=== PATIENT | female | born 1965 | race Caucasian/White ===

== ENCOUNTER → 2018-02-28 09:52 | Outpatient (CLI) | payer BC, SELFPAY ==
--- NOTE | 2018-02-28 09:56 | BI_ITS ---
MAMMOGRAPHY - BILATERAL SCREENING REASON FOR EXAM: Female, 52 years old. Routine annual screening examination. PERTINENT HISTORY: Mother with breast cancer. TECHNIQUE: Digital bilateral breast patsy (3D mammographic acquisition) in the CC and MLO projections. 2-D mediolateral oblique (MLO) and craniocaudad (CC) views of both breasts were obtained. CAD: Full Field Digital Mammography with Computer Added Detection was performed. COMPARISON: Comparison is made with prior axial examination dated November 25, 2016. FINDINGS: Breast Composition: The breasts are heterogeneously dense, which may obscure small masses. There are no dominant masses or suspicious calcifications. No other significant abnormalities are identified. There has been no significant change since the prior study. BI/SCREENING MAMM (CAD), BILAT IMPRESSION: Stable bilateral screening mammogram. Yearly follow-up mammogram recommended. (A) ASSESSMENT CATEGORY: BIRADS Category 1: Negative. A letter regarding these results will be sent to the patient by the facility within 30 days. Approximately 10% of breast cancers are not detected by mammography. A normal mammogram should not delay biopsy of a clinically suspicious abnormality. [id number] Electronically Signed: Jose L Castillo MD at 11:28 EST Tel [phone], Service support ,
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
--- OUTSIDE RECORDS SUMMARY | 2018-05-05 02:09 | XMS RPT_ITS | Clinical Summary ---
:1965 Author Organization [facility] Address [address] [place] [address] Phone Care Team Providers Name Role Phone Theresa Ruelas MD Unavailable Conditions or Problems Problem Problem Onset Status Entry Provider Comment Standard Annotate Name Code Date Date Description Screening 177085829 Active Theresa Mar Procedure for HPV (SNOMED CT) / Jessenia carried out MD on subject Screening 268247521 Active Theresa Mar Screening for (SNOMED CT) / Jessenia for cervical MD malignant cancer neoplasm of cervix Business Information Manager annual 23219149 Active Theresa Mar Gynecologic exam (SNOMED CT) / Jessenia examination Medications Medication Instructions Start Stop Generic Name NDC Provider Date Date VICENTE LEAN VICENTE LEAN Theresa E (PROTEIN ANT) 6 (PROTEIN Jessenia CAIN) POTASSIUM 99 MG POTASSIUM [id number] Theresa Mar TABS Fabricio Ruelas MD COPPER COPPER [id number] Threesa Mar GLUCONATE 2 MG 6 GLUCONATE Jessenia LUCAS TABS BIO-V VITAMIN BIO-V VITAMIN Theresa E 6 Jessenia LUCAS BIO-M VITAMIN BIO-M VITAMIN Theresa E WITHOUT IRON 6 WITHOUT IRON Jessenia LUCAS THYROID LIFT THYROID LIFT Theresa Ruelas MD BONE AND JOINT BONE AND Theresa E VITAMIN 6 JOINT VITAMIN Jessenia LUCAS MAGNESIUM 200 MAGNESIUM 84642778173 Theresa E MG TABS Fabricio Ruelas MD TAURINE 500 MG TAURINE 01739648201 Theresa Mar CAPS Fabricio Ruelas MD Medications Administered No information available. Allergies, Adverse Reactions, Alerts Observed no known allergies at Results Date Name Value Unit Range Flag Description Office Visit: est annual MEDS REVIEW Done Documentation of current medications (procedure) MAMMOGRAM Normal Bilateral Breast Mammogram screening PAP SMEAR Normal General categories [Interpretation] of Cervical or vaginal smear or scraping by Cyto stain ORALTOBACUSE Never Tobacco smoking status NHIS SMOK STATUS Current every day smoker Tobacco use [facility] No Fall risk assessment Lab Report: Miscellaneous Lab Procedure [id number] . GE use only - for LinkLogic import when terms are not otherwise specified Plan of Care No information available. Procedures No information available. Vital Signs Date Name Value Unit Description BMI (Body Mass Index) 24.50 kg/m2 Body Mass Index [Ratio] Body Temperature 98.5 [degF] temperature E&M Body Temperature 36.94 Aida temperature in centigrade E&M BP Diastolic 79 mm[Hg] blood pressure, diastolic - 8462-4 BP Systolic 126 mm[Hg] blood pressure, systolic - 8480-6 Heart Rate 79 /min pulse rate E&M - 8867-4 Height 66 [in_us] height E&M - 8302-2 Height 167.64 cm height in centimeters E&M Respiratory Rate 16 /min respiratory rate E&M - 9279-1 Weight Measured 151.8 [lb_av] weight E&M - 3141-9 Weight Measured 68.85 kg weight in kilograms E&M
--- OUTSIDE RECORDS SUMMARY | 2018-05-05 02:09 | XMS RPT_ITS | Clinical Summary ---
:1965 Author Organization [facility] Address [address] [place] [address] Phone Care Team Providers Name Role Phone Theresa Ruelas MD Unavailable Conditions or Problems Problem Problem Onset Status Entry Provider Comment Standard Annotate Name Code Date Date Description Screening 355637017 Active Theresa Mar Procedure for HPV (SNOMED CT) / Jessenia carried out MD on subject Screening 429788238 Active Theresa Mar Screening for (SNOMED CT) / Jessenia for cervical MD malignant cancer neoplasm of cervix Civil Engineer annual 67206417 Active Theresa Mar Gynecologic exam (SNOMED CT) / Jessenia examination Medications Medication Instructions Start Stop Generic Name NDC Provider Date Date VICENTE LEAN VICENTE LEAN Theresa E (PROTEIN ANT) 6 (PROTEIN Jessenia CAIN) POTASSIUM 99 MG POTASSIUM 08314355425 Theresa Mar TABS Fabricio Ruelas MD COPPER COPPER 41248408388 Theresa Mar GLUCONATE 2 MG 6 GLUCONATE Jessenia LUCAS TABS BIO-V VITAMIN BIO-V VITAMIN Theresa E 6 Jessenia LUCAS BIO-M VITAMIN BIO-M VITAMIN Theresa E WITHOUT IRON 6 WITHOUT IRON Jessenia LUCAS THYROID LIFT THYROID LIFT Theresa Ruelas MD BONE AND JOINT BONE AND Theresa E VITAMIN 6 JOINT VITAMIN Jessenia LUCAS MAGNESIUM 200 MAGNESIUM 04761653173 Theresa E MG TABS Fabricio Ruelas MD TAURINE 500 MG TAURINE 90686632689 Theresa Mar CAPS Fabricio Ruelas MD Medications [...] STATUS Current every day smoker Tobacco use [facility] No Fall risk assessment Plan of Care Type Date Detail Appointment 11:00 AM Theresa Ruelas MD, [address] [facility], [address] Floor, [place], [address], Procedures No information available. Vital Signs Date [...]
--- OUTSIDE RECORDS SUMMARY | 2018-05-05 02:09 | XMS RPT_ITS | Clinical Summary ---
:1965 Author Organization [facility] Address [address] [place] [address] Phone Care Team Providers Name Role Phone Theresa Ruelas MD Unavailable Conditions or Problems Problem Problem Onset Status Entry Provider Comment Standard Annotate Name Code Date Date Description Screening 759571787 Active Theresa Mar Procedure for HPV (SNOMED CT) / Jessenia carried out MD on subject Screening 480616683 Active Theresa Mar Screening for (SNOMED CT) / Jessenia for cervical MD malignant cancer neoplasm of cervix Sustainable Systems Analyst annual 53540317 Active Theresa Mar Gynecologic exam (SNOMED CT) / Jessenia examination Medications Medication Instructions Start Stop Generic Name NDC Provider Date Date VICENTE LEAN VICENTE LEAN Theresa E (PROTEIN ANT) 6 (PROTEIN Jessenia CAIN) POTASSIUM 99 MG POTASSIUM 77524949983 Theresa Mar TABS Fabricio Ruelas MD COPPER COPPER 25432369345 Theresa Mar GLUCONATE 2 MG 6 GLUCONATE Jessenia LUCAS TABS BIO-V VITAMIN BIO-V VITAMIN Theresa E 6 Jessenia LUCAS BIO-M VITAMIN BIO-M VITAMIN Theresa E WITHOUT IRON 6 WITHOUT IRON Jessenia LUCAS THYROID LIFT THYROID LIFT Theresa Ruelas MD BONE AND JOINT BONE AND Theresa E VITAMIN 6 JOINT VITAMIN Jessenia LUCAS MAGNESIUM 200 MAGNESIUM 33976419351 Theresa E MG TABS Fabricio Ruelas MD TAURINE 500 MG TAURINE 76820050099 Theresa Mar CAPS Fabricio Ruelas MD Medications [...] STATUS Current every day smoker Tobacco use [facility] No Fall risk assessment Lab Report: [...]
--- OUTSIDE RECORDS SUMMARY | 2018-05-05 02:09 | XMS RPT_ITS | Clinical Summary ---
:1965 Author Organization [facility] Address [address] [place] [address] Phone Care Team Providers Name Role Phone Theresa Ruelas MD Unavailable Conditions or Problems Problem Problem Onset Status Entry Provider Comment Standard Annotate Name Code Date Date Description Screening 652262366 Active Theresa Mar Procedure for HPV (SNOMED CT) / Jessenia carried out MD on subject Screening 068507942 Active Theresa Mar Screening for (SNOMED CT) / Jessenia for cervical MD malignant cancer neoplasm of cervix Manager University annual 33527259 Active Theresa Mar Gynecologic exam (SNOMED CT) / Jessenia examination Medications Medication Instructions Start Stop Generic Name NDC Provider Date Date VICENTE LEAN VICENTE LEAN Theresa E (PROTEIN ANT) 6 (PROTEIN Jessenia CAIN) POTASSIUM 99 MG POTASSIUM [id number] Theresa Mar TABS Fabricio Ruelas MD COPPER COPPER 73262560659 Theresa Mar GLUCONATE 2 MG 6 GLUCONATE Jessenia LUCAS TABS BIO-V VITAMIN BIO-V VITAMIN Theresa E 6 Jessenia LUCAS BIO-M VITAMIN BIO-M VITAMIN Theresa E WITHOUT IRON 6 WITHOUT IRON Jessenia LUCAS THYROID LIFT THYROID LIFT Theresa Ruelas MD BONE AND JOINT BONE AND Theresa E VITAMIN 6 JOINT VITAMIN Jessenia LUCAS MAGNESIUM 200 MAGNESIUM 54558321176 Theresa E MG TABS Fabricio Ruelas MD TAURINE 500 MG TAURINE 32055775848 Theresa Mar CAPS Fabricio Ruelas MD Medications [...] STATUS Current every day smoker Tobacco use [facility] No Fall risk assessment [...]
== END ==
PROVIDERS: Family Provider Family Medicine; PCP Family Medicine; Referring Provider Obstetrics & Gynecology; Visit Provider Obstetrics & Gynecology
DX: Z12.31 Encounter for screening mammogram for malignant neoplasm of breast (principal)
CPT/HCPCS: 77063; 77067

== ENCOUNTER → 2019-03-13 09:58 | Outpatient (CLI) | payer BC, SELFPAY ==
[2018-02-28 10:37] VITALS: BMI 24.5
[2019-02-28 10:18] VITALS: BMI 24.5
--- NOTE | 2019-03-13 10:04 | BI_ITS ---
MAMMOGRAPHY - BILATERAL SCREENING REASON FOR EXAM: Female, 53 years old. Routine annual screening examination. PERTINENT HISTORY: Non-contributory. Remote right excisional breast biopsy. TECHNIQUE: Digital bilateral breast robinson (3D mammographic acquisition) in the CC and MLO projections. 2-D mediolateral oblique (MLO) and craniocaudad (CC) views of both breasts were obtained. CAD: Full Field Digital Mammography with Computer Added Detection was performed. COMPARISON: Comparison is made with prior study dated February 28, 2018. FINDINGS: Breast Composition: The breasts are heterogeneously dense, which may obscure small masses. There are no dominant masses or suspicious calcifications. No other significant abnormalities are identified. There has been no significant change since the prior study. BI/SCREEN MAMM (CAD) W/ROBINSON BILAT IMPRESSION: Stable bilateral screening mammogram. Yearly follow-up mammogram recommended. (A) ASSESSMENT CATEGORY: BIRADS Category 1: Negative. A letter regarding these results will be sent to the patient by the facility within 30 days. Approximately 10% of breast cancers are not detected by mammography. A normal mammogram should not delay biopsy of a clinically suspicious abnormality. [id number] Electronically Signed: Jose L Castillo, at 12:08 EST , Service support ,
== END ==
PROVIDERS: PCP Family Medicine; Referring Provider Obstetrics & Gynecology; Visit Provider Obstetrics & Gynecology
DX: Z12.31 Encounter for screening mammogram for malignant neoplasm of breast (principal)
CPT/HCPCS: 77063; 77067

== ENCOUNTER → 2020-03-16 11:13 | Outpatient (CLI) | payer BC, SELFPAY ==
[2019-03-13 11:19] VITALS: BMI 24.5
[2020-03-16 10:17] VITALS: BMI 22.4
--- NOTE | 2020-03-16 11:16 | BI_ITS ---
MAMMOGRAPHY - BILATERAL SCREENING REASON FOR EXAM: Female, 54 years old. Routine annual screening examination. PERTINENT HISTORY: Mother with breast cancer. Remote right excisional breast biopsy. TECHNIQUE: Digital bilateral breast robinson (3D mammographic acquisition) in the CC and MLO projections. 2-D mediolateral oblique (MLO) and craniocaudad (CC) views of both breasts were obtained. CAD: Full Field Digital Mammography with Computer Added Detection was performed. COMPARISON: Comparison is made with prior study dated 03/13/2019 and 02/28/2018. FINDINGS: Breast Composition: The breasts are heterogeneously dense, which may obscure small masses. There are no dominant masses or suspicious calcifications. Suspect a 6.6 mm x 7 mm nodular density in the inferior central aspect of the left breast at approximately the 6 o''clock position of the breasts. Stable right axillary lymph nodes. No other significant abnormalities are identified. BI/SCRN MAMM (CAD)W/ROBINSON BILAT IMPRESSION: Possible 6.6 mm x 7 mm nodular density in the inferior central aspect of the left breast as described. Correlation with ultrasound is recommended. ASSESSMENT CATEGORY: BIRADS Category 0: Incomplete. Need additional imaging evaluation. A letter regarding these results will be sent to the patient by the facility within 30 days. Approximately 10% of breast cancers are not detected by mammography. A normal mammogram should not delay biopsy of a clinically suspicious abnormality. [id number] Electronically Signed: Jose L Castillo MD at 14:34 EST , Service support ,
== END ==
PROVIDERS: PCP Family Medicine; Referring Provider Obstetrics & Gynecology; Visit Provider Obstetrics & Gynecology
DX: Z12.31 Encounter for screening mammogram for malignant neoplasm of breast (principal); Z80.3 Family history of malignant neoplasm of breast
CPT/HCPCS: 77063; 77067

== ENCOUNTER → 2020-03-19 10:47 | Outpatient (CLI) | payer BC, SELFPAY ==
[2020-03-16 10:17] VITALS: BMI 22.4
--- NOTE | 2020-03-19 10:50 | US_ITS ---
STUDY: ULTRASOUND BREAST - LEFT REASON FOR EXAM: Female, 54 years old. Abnormal screening mammogram. TECHNIQUE: Axial and longitudinal images of the LEFT breast were performed with a high resolution ultrasound transducer. # OF IMAGES: 43 COMPARISON: Comparison is made with prior study dated 03/16/2020. FINDINGS: LEFT Breast: There is a 3 mm x 4 mm x 2 mm hypoechoic nodule at the 6 o''clock position of the breast at 2 cm from the nipple. This is not a typical cyst. Biopsy is recommended. US/Breast Limited Unilateral IMPRESSION: 3 mm x 4 mm x 2 mm hypoechoic nodule at the 6 o''clock position of the breast at 2 cm from nipple. A biopsy is recommended. ASSESSMENT CATEGORY: BIRADS Category 4: Suspicious - Biopsy Should Be Considered. A letter regarding these results will be sent to the patient by the facility within 30 days. Electronically Signed: Jose L Castillo MD at 13:07 EST , Service support ,
== END ==
PROVIDERS: PCP Family Medicine; Referring Provider Nurse Practitioner Women's Health; Visit Provider Nurse Practitioner Women's Health
DX: R92.8 Other abnormal and inconclusive findings on diagnostic imaging of breast (principal)
CPT/HCPCS: 76642

== ENCOUNTER → 2020-04-02 12:27 | Outpatient (CLI) | payer BC, SELFPAY ==
[2020-03-25 12:39] VITALS: BMI 21.5
--- NOTE | 2020-04-02 | BRBX_PTH ---
PATIENT: ISABEL GUZMAN LOC: [facility] U#:[id number] AGE/SX: 59/F ROOM: RE04/02/[address]: Dr. Tariq Millan MD : 1965 BED: DIS: SPEC #: [id number] RECD: 04/02/20 13:57 STATUS: LEX REArsalan #: [id number] DUYEN: 04/02/20 00:[address]: Tariq Millan DEPT: SURGICAL PATHOLOGY RECD BY: Dino Rajan ENTERED: 04/03/20 07:26 SP TYPE: BREAST BX OTHR DR: Dr. Surjit Millan III, MD Tissues: Left breast, NOS Procedures: Surgery Specimen Level IV HEADER OPERATION: Left stereotactic breast biopsy PRE-OP DIAGNOSIS: 6 o'clock left breast density TISSUE SUBMITTED: 6 o'clock left breast density ISCHEMIC TIME: 1 minute FIXATION TIME: 78.5 hours MICROSCOPIC DIAGNOSIS Left breast density, 6 o'clock, stereotactic core biopsy: Fragments of benign breast tissue with focal fibrocystic changes and minimal intraductal hyperplasia without atypia. Negative for malignancy. See comment. ABRIL:josue 04/06/2020 COMMENT Correlation with clinical, radiologic findings and appropriate follow up are necessary. MICROSCOPIC DESCRIPTION Slides are reviewed. GROSS DESCRIPTION Received is one container labeled with the patient's name and not further designated. The specimen consists of multiple irregular fragments of yellow-guadalupe soft tissue that in aggregate measure 4.5 x 3 x 0.2 cm. The specimen is totally submitted in two cassettes. / AM:josue 04/03/20 TC:5 CPT: 28717
--- NOTE | 2020-04-02 12:40 | HP.PCM_ITS ---
Problem List (1) Abnormal mammogram of left breast Status: Acute History and Physical Date of Admission: 04/02/20 Intake Visit Reasons: BIRADS 4 LEFT BREAST Chief Complaint: BIRADS 4 Left Breast Monitor Car Operator Required: No Accompanied by: Is patient in pain?: No Allergies No Known Allergies Allergy (Verified 03/25/20 12:40) Medications multivitamin,fk-[id number]-arcxplkk 1 tab PO DAILY 02/28/18 [History Confirmed 03/25/20] antiarthritic combination no.2 900 mg tablet mg PO 03/16/20 [History Confirmed 03/25/20] losartan 50 mg tablet 50 mg PO DAILY 03/16/20 [History Confirmed 03/25/20] potassium gluconate 595 mg (99 mg) tablet 595 mg PO DAILY 03/16/20 [History Confirmed 03/25/20] meloxicam 15 mg tablet 15 mg PO DAILY 03/25/20 [History Confirmed 03/25/20] PFSH Medical History Abnormal mammogram of left breast (Acute) Back problem (Acute) History of abnormal cervical Pap smear (Acute) Hypertension (Chronic) Surgical History History of lumpectomy of right breast (Acute) Family History (Updated 03/25/20 @ 12:39 by Karoline Mistry) Grandmother Cancer hodgkins lymphoma Sister Cancer lung, brain Father Diabetes Mother Cancer Lymphoma with mets Social History (Updated 03/25/20 @ 13:[address] Tariq Millan MD) Smoking Status: Current every day smoker alcohol intake: current details: occasionally substance use type: does not use caffeine: Yes what type of physical activity do you participate in: none seatbelt use: never do you feel safe at home: Yes additional social history: - Yan HPI HPI HPI: ISABEL GUZMAN, is a 54 F who presents to the office today for surgical consultation regarding an abnormal mammogram. Patient is referred by Dr. Surjit Millan III and Madelyn Rolle. A written copy my surgical consult recommendations will return to them. 54-year-old female. A0. Menarche at age 14. First child was born when she was 23. She did breast-feed. Not been on any estrogen replacement. Family history is negative for breast cancer. No nipple discharge or bleeding. She has had a remote right breast biopsy per myself including excisional biopsy which was benign. On March 16, 2020 at the [facility] she had screening mammography. This suggested a possible 6.6 x 7 mm nodular density in the inferior central aspect of the left breast. Actually on my review in the assisted review from my my hazardous waste material technician there may be 2 similar looking items in the same inferior portion. These do not seem to show on CC view. The patient then had a breast ultrasound on March 19, 2020. A 3 x 4 x 2 mm hypoechoic nodule 6 o'clock position +2 cm was identified. It was felt to be BI-RADS Category 4 suspicious. On my personal review of the ultrasound this item is extremely vague and appears to be even more vague upon rotation of the probe. It does not make immediate correlate of sense to me that this 3 x 4 mm area correlates with the mammographic 6.6 to 7 mm area. HPI HPI HPI: ISABEL GUZMAN, is a 54 F who presents to the office today for ROS General General: Yes weight change; no appetite, fatigue, colon cancer, breast cancer or weakness HEENT HEENT: No difficulty swallowing, eye injury, eye surgery, swollen glands or hoarseness Endo Endocrine: No thyroid disease, diabetes mellitus, thyroid cancer, Hair loss, heat intolerance or cold intolerance Skin Skin: No rash or changing moles Breast Breast: Yes abnormal mammogram; no left breast lump, right breast lump, nipple discharge, breast pain, abnormal US or breast enlargement Musc Musculoskeletal: No back problems, arthritis, rheumatoid arthritis, gout or joint pain Cardio Cardiovascular: Yes high blood pressure; no murmur, pacemaker, heart disease, atrial fibrillation, heart attack, heart stent, palpitations, shortness of breat with exertion or chest pain Psych Psychiatric: No depression, anxiety or hearing voices Resp Respiratory: No shortness of breath, No sleep apnea, No cough, No COPD, No asthma, No emphysema, No wheezing Gastro Gastrointestinal: No abdominal pain, No nausea or vomiting, No diarrhea, No constipation, No blood in stool, No acid reflux, No hemorrhoids, No ulcers, No gallbladder problem, No black,tarry stools Calderon Hematologic: No blood thinners, No blood disorders, No bleeding, No anemia, No blood clots Neuro Neurologic: No system reviewed and no additional complaints, except as docu, No as per HPI, No abnormal walking, No abnormal hearing, No abnormal movements, No abnormal speech, No behavioral changes, No burning sensations, No confusion, No seizure-like activity, No unsteadiness, No dizziness, No localized weakness, No frequent falls, No headache(s), No lack of coordination, No loss of vision, No memory loss, No numbness, No other visual disturbances, No radiating pain, No restless legs, No sensory deficit, No fainting, No tingling, No tremor(s), No weakness, No other Exam Const General: cooperative, healthy appearing, comfortable, no acute distress Nutritional Appearance: average body habitus Orientation: alert, awake Chest Breast Palpation: No nipple discharge Other: Right breast: No focal mass. No nipple discharge. No axillary or clavicular adenopathy Left breast: No focal mass. No nipple discharge. No axillary or clavicular adenopathy Cardio Heart Sounds: no murmurs Assessment & Plan Problems 1. Abnormal mammogram of left breast R92.8 2. Abnormal ultrasound of breast R92.8 Plan I have personally reviewed the patient's mammogram and ultrasound. On mammogram the area of concern on MLO is vague and there appears to be actually 2 similar items and rather close proximity to each other. On reviewing the patient's ultrasound the item found appears to be much smaller and even more vague. I believe that this item seen on ultrasound would be very difficult to identify for sampling. With that in mind I have offered the patient attempted a stereotactic needle core left breast biopsy of 1 possibly 2 lesions depending upon what might be identified. I have discussed the technique, benefit, risk and alternatives. If a definitive item cannot be identified then a secondary option would be to schedule for an attempt at an ultrasound-guided needle core biopsy of the left breast 6 o'clock position +2 cm lesion. We would need to attempt that in the ultrasound suite. Pending progress with 1 or both of these procedures the patient could potentially benefit from a breast MRI. The patient and her have had an opportunity to ask and have questions answered. We will schedule procedure at her discretion. Unfortunately I am anticipating that this area of mammographic and or ultrasound concern may not represent the identical lesion and likely will be difficult to image. Copy: BRIAN TiwariC and Dr. Surjit Millan, III Tariq Millan M.D., F.A.C.S. Coding Level of Care Code 88535 Diagnoses Abnormal mammogram of left breast R92.8 Abnormal ultrasound of breast R92.8 I have re-examined the patient. There are no clinical changes since date of exam. Procedure Criteria Procedure Type: Elective COVID Risk Discussion: The surgeon/proceduralist and patient have discussed in detail the risk of exposure to and/or potential harm posed by the COVID-19 virus with having a surgery/procedure at this time versus the risk of delaying the surgery/procedure. It is not possible to know either the risk of delaying the surgery or procedure or chance of getting an infection with perfect accuracy, but a joint decision was made between the patient and the surgeon/proceduralist to proceed at this time with the scheduled surgery/procedure as indicated on the consent form.
--- NOTE | 2020-04-02 13:32 | PCM.OPRPT ---
Problem List (1) Abnormal mammogram of left breast Status: Acute Report of Operation Date of Procedure: 04/02/20 Pre-Operative Diagnosis: Mammographic density lower mid left breast Post-Operative Diagnosis: Same Surgery/Procedure Performed:: Stereotactic needle core biopsy lower mid left breast Description of Surgical Findings:: Timeout and informed consent was obtained. 54-year-old female was taken to the stereotactic unit) on the table. The left breast was placed in medial lateral view. The vague density in question was felt to been identified. Stereotactic images were obtained. Digital information was obtained on a single target site. The breast was prepped with Betadine. 1% lidocaine was used as a local anesthetic. A total of 10 cc was used. A small stab incision was created. A 10-gauge resolved needle was advanced to prefire depth. Prefire films were obtained suggesting that the lesion seems to have resolved. The device was fired. 6 cores were obtained. A marking clip was left at the 12 o'clock position. On fast view demonstrated seemingly resolution of the previous density with marking clip in the area of the lesion. She was released from the device. Pressure was held for hemostasis. Steri-Strip Telfa OpSite dressing applied. The specimens had been immediately transferred to formalin. She was given activity wound care instructions. She will be notified of pathology results as they become available. Drains none. Specimens needle cores x6 in 1 container. Blood loss minimal. Tariq Millan M.D., F.A.C.S. Type of Anesthesia:: Local
== END ==
PROVIDERS: PCP Family Medicine; Referring Provider Surgery; Visit Provider Surgery
DX: R92.8 Other abnormal and inconclusive findings on diagnostic imaging of breast (principal); I10 Essential (primary) hypertension; F17.200 Nicotine dependence, unspecified, uncomplicated; Z79.1 Long term (current) use of non-steroidal anti-inflammatories (NSAID); N62 Hypertrophy of breast
CPT/HCPCS: 19081; 88305; J7050; A4648

== ENCOUNTER → 2020-10-21 13:42 | Outpatient (CLI) | payer BC, SELFPAY ==
[2020-03-25 12:39] VITALS: BMI 21.5
--- NOTE | 2020-10-21 13:44 | BI_ITS ---
MAMMOGRAPHY - UNILATERAL DIAGNOSTIC: LEFT BREAST REASON FOR EXAM: Female, 55 years old. Follow-up for left stereotactic breast biopsy. PERTINENT HISTORY: Mother with breast cancer. TECHNIQUE: Digital unilateral breast patsy (3D mammographic acquisition) in the CC and MLO projections. 2-D mediolateral oblique (MLO) and craniocaudad (CC) views of both breasts were obtained. CAD: Full Field Digital Mammography with Computer Added Detection was performed. COMPARISON: Comparison is made with prior study of 03/16/2020. FINDINGS: Breast Composition: The breasts are heterogeneously dense, which may obscure small masses. Status post biopsy of a nodular density in the inferior medial aspect of the left breast. A tissue clip marker is seen within it. No other significant abnormalities are identified. BI/DIAG MAMM W/CAD, UNILAT IMPRESSION: Stable unilateral diagnostic mammogram. One year follow-up mammogram recommended. (A) ASSESSMENT CATEGORY: BIRADS Category 2: Benign. A letter regarding these results will be sent to the patient by the facility within 30 days. Approximately 10% of breast cancers are not detected by mammography. A normal mammogram should not delay biopsy of a clinically suspicious abnormality. Electronically Signed: Jose L Castillo MD at 15:05 EDT , Service support ,
== END ==
PROVIDERS: PCP Family Medicine; Referring Provider Surgery; Visit Provider Surgery
DX: R92.8 Other abnormal and inconclusive findings on diagnostic imaging of breast (principal); Z98.890 Other specified postprocedural states
CPT/HCPCS: 77061; 77065; G0279

== ENCOUNTER 2021-04-01 08:56 | Outpatient (CLI) | payer BC, SELFPAY ==
[2021-04-08 08:52] LABS: HPV APTIMA, High Risk Negative (Negative)
== END 2021-04-01 23:59 | disposition home or self-care (01) ==
LOC: LABSPEC 04-02 08:57
PROVIDERS: PCP Internal Medicine; Visit Provider Obstetrics & Gynecology
DX: Z12.4 Encounter for screening for malignant neoplasm of cervix (principal)
CPT/HCPCS: 87624; 88175; G0145

== ENCOUNTER 2021-05-13 15:43 | Outpatient (CLI) | payer BC, SELFPAY ==
[2021-05-13 16:38] LABS: Absolute Lymphocyte Count 2.35 X10^3/uL (0.83-4.51); Absolute Neutrophil Count 4.6 X10^3/uL (2.0-7.7); Basophil# 0.07 X10^3/uL; Basophil% 0.9 % (0-1); Eosinophil# 0.19 X10^3/uL; Eosinophils% 2.4 % (0-5); Hematocrit 41.5 % (37-47); Hemoglobin 13.7 g/dL (12.0-15.0); Lymphocyte # 2.35 X10^3/ul (0.83-4.51); Lymphocyte % 29.4 % (19-41); Mean Platelet Vol. 9.7 fl (6.2-12.0); Monocyte# 0.73 X10^3/uL; Monocyte% 9.1 % (0-10); NRBC Flagged by Analyzer 0 % (0-5); Neutrophil # 4.62 X10^3/uL (2.7-7.7); Neutrophil % 57.9 % (47-70); Platelet Count 347 K/mm3 (150-450); RBC Distribution Width CV 12.3 % (11.6-14.6); RBC Distribution Width SD 44.4 fl (35.1-43.9); Red Blood Count 4.28 M/mm3 (4.2-5.4)
[2021-05-13 16:56] LABS: Vitamin D,25 Hydroxy 32.1 ng/mL
[2021-05-13 17:02] LABS: Hemoglobin A1c 5.2 % (3.8-5.6)
[2021-05-13 17:29] LABS: AST(SGOT) 23 U/L (15-37); Alanine Aminotransfer ALT/SGPT 37 U/L (13-56); Albumin, Serum 3.9 g/dL (3.2-5.0); Alkaline Phosphatase 83 U/L (45-117); Anion Gap 1 (5-15); BUN 22 mg/dL (7-18); BUN/Creat Ratio 37.7 RATIO (10-20); Calcium,Total 9.2 mg/dL (8.5-10.1); Chloride 105 mmol/L (98-107); Cholesterol 214 mg/dL (200); Creatinine, Serum 0.58 mg/dL (0.55-1.02); EST Glomerular Filtration Rate 113 mL/min (>60); Est Glom Filt Rate - Afr Amer 137 mL/min (>60); Ferritin 184 ng/mL (8-252); Free T3 2.7 pg/mL (2.18-3.98); Globulin 4.1 g/dL (2.2-4.2); Glucose 80 mg/dL (74-106); High Density Lipoprotein 54 mg/dL; Iron 106 ug/dL (50-170); Iron Binding Capacity,Total 252 ug/dL (250-450); PERCENT IRON SATURATION 42.1 % (15.0-55.0); Potassium 4.5 mmol/L (3.5-5.1); Sodium Level 137 mmol/L (136-145); T4 Free Direct 0.95 ng/dL (0.76-1.46); Thyroid Stim Hormone (TSH) 0.87 uIU/mL (0.358-3.74); Triglycerides 242 mg/dL; Very Low Density Lipoprotein 48 mg/dL (5-40)
== END 2021-05-13 23:59 | disposition home or self-care (01) ==
LOC: BIMLAB 15:44
PROVIDERS: PCP Internal Medicine; Referring Provider Internal Medicine; Visit Provider Internal Medicine
DX: I10 Essential (primary) hypertension (principal); R79.0 Abnormal level of blood mineral
CPT/HCPCS: 36415; 80053; 80061; 82306; 82728; 83036; 83540; 83550; 83735; 84439; 84443; 84481; 85025

== ENCOUNTER → 2021-11-08 | Outpatient (CLI) | payer BC, SELFPAY ==
--- NOTE | 2021-11-08 14:05 | BI_ITS ---
MAMMOGRAPHY - BILATERAL SCREENING REASON FOR EXAM: Female, 56 years old. Routine annual screening examination. PERTINENT HISTORY: Mother with breast cancer. Prior right excisional breast biopsy. TECHNIQUE: Digital bilateral breast robinson (3D mammographic acquisition) in the CC and MLO projections. 2-D mediolateral oblique (MLO) and craniocaudad (CC) views of both breasts were obtained. CAD: Full Field Digital Mammography with Computer Added Detection was performed. COMPARISON: Comparison is made with prior study dated 03/16/2020 and 10/21/2020. FINDINGS: Breast Composition: The breasts are heterogeneously dense, which may obscure small masses. There are no dominant masses or suspicious calcifications. A tissue clip marker is seen in the deep inferior medial aspect of the left breast. The previously seen nodular density has almost completely resolved. No other significant abnormalities are identified. BI/SCRN MAMM (CAD)W/ROBINSON BILAT IMPRESSION: Stable bilateral screening mammogram. Yearly follow-up mammogram recommended. (A) ASSESSMENT CATEGORY: BIRADS Category 2: Benign. A letter regarding these results will be sent to the patient by the facility within 30 days. Approximately 10% of breast cancers are not detected by mammography. A normal mammogram should not delay biopsy of a clinically suspicious abnormality. [id number] Electronically Signed: Jose L Castillo MD at 14:47 EDT ,
== END | disposition home or self-care (01) ==
LOC: OPBI 14:04
PROVIDERS: PCP Internal Medicine; Visit Provider Surgery
DX: Z12.31 Encounter for screening mammogram for malignant neoplasm of breast (principal); Z80.3 Family history of malignant neoplasm of breast
CPT/HCPCS: 77063; 77067

== ENCOUNTER → 2022-06-20 | Outpatient (CLI) | payer BC, SELFPAY ==
[2022-06-20 12:05] LABS: Absolute Lymphocyte Count 2.17 X10^3/uL (0.83-4.51); Basophil# 0.08 X10^3/uL; Basophil% 0.7 % (0-1); Eosinophil# 0.07 X10^3/uL; Eosinophils% 0.6 % (0-5); Hematocrit 43.4 % (37-47); Hemoglobin 14.3 g/dL (12.0-15.0); Lymphocyte # 2.17 X10^3/ul (0.83-4.51); Mean Corp Hgb Conc 32.9 g/dL (32-36); Mean Corpuscular Hgb 32.4 pg (27.0-32.0); Mean Corpuscular Volume 98.2 fL (81-99); Mean Platelet Vol. 9.8 fl (6.2-12.0); Monocyte# 1.07 X10^3/uL; Monocyte% 9.4 % (0-10); NRBC Flagged by Analyzer 0 % (0-5); Neutrophil # 7.98 X10^3/uL (2.7-7.7); Neutrophil % 69.9 % (47-70); Platelet Count 359 K/mm3 (150-450); RBC Distribution Width CV 12.4 % (11.6-14.6); Red Blood Count 4.42 M/mm3 (4.2-5.4); White Blood Count 11.4 K/mm3 (4.4-11.0)
[2022-06-20 12:48] LABS: ALB/GLOB Ratio 0.9 RATIO (0.9-2.4); AST(SGOT) 22 U/L (15-37); Alanine Aminotransfer ALT/SGPT 31 U/L (13-56); Albumin, Serum 3.8 g/dL (3.2-5.0); Alkaline Phosphatase 84 U/L (45-117); Anion Gap 6 (5-15); BUN 19 mg/dL (7-18); BUN/Creat Ratio 35.8 RATIO (10-20); Calcium,Total 9.6 mg/dL (8.5-10.1); Chloride 105 mmol/L (98-107); Cholesterol 221 mg/dL (200); Creatinine, Serum 0.53 mg/dL (0.55-1.02); EST Glomerular Filtration Rate 125 mL/min (>60); Est Glom Filt Rate - Afr Amer 152 mL/min (>60); Ferritin 204 ng/mL (8-252); Globulin 4.4 g/dL (2.2-4.2); Glucose 95 mg/dL (74-106); High Density Lipoprotein 65 mg/dL; Iron 114 ug/dL (50-170); Iron Binding Capacity,Total 247 ug/dL (250-450); PERCENT IRON SATURATION 46.2 % (15.0-55.0); Potassium 4.1 mmol/L (3.5-5.1); Protein, Total 8.2 g/dL (6.4-8.2); Sodium Level 138 mmol/L (136-145); T4 Free Direct 1.15 ng/dL (0.76-1.46); Thyroid Stim Hormone (TSH) 0.91 uIU/mL (0.358-3.74); Triglycerides 157 mg/dL; Very Low Density Lipoprotein 31 mg/dL (5-40)
[2022-06-21 12:09] LABS: CCP IgG Antibodies > 250 units (0-19)
[2022-06-21 13:08] LABS: ANTINUCLEAR ANTIBODIES DIRECT Negative (Negative)
== END | disposition home or self-care (01) ==
LOC: LAB 11:41
PROVIDERS: PCP Internal Medicine; Referring Provider Internal Medicine; Visit Provider Internal Medicine
DX: Z00.00 Encounter for general adult medical examination without abnormal findings (principal); M19.90 Unspecified osteoarthritis, unspecified site; M65.9 Synovitis and tenosynovitis, unspecified; R79.0 Abnormal level of blood mineral; I10 Essential (primary) hypertension; Z13.220 Encounter for screening for lipoid disorders; E55.9 Vitamin D deficiency, unspecified
CPT/HCPCS: 36415; 80053; 80061; 82306; 82728; 83540; 83550; 84439; 84443; 84481; 85025; 86038; 86200; 86225; 86235; 86431

== ENCOUNTER → 2022-09-06 | Outpatient (CLI) | payer BC, SELFPAY | END | disposition home or self-care (01) | LOC: LABSPEC 09:02 | PROVIDERS: PCP Internal Medicine; Referring Provider Internal Medicine; Visit Provider Internal Medicine | DX: K58.0 Irritable bowel syndrome with diarrhea (principal) | CPT/HCPCS: 87493; 87506 ==

== ENCOUNTER → 2022-11-10 | Outpatient (CLI) | payer BC, SELFPAY ==
--- NOTE | 2022-11-10 10:12 | BI_ITS ---
MAMMOGRAPHY - BILATERAL SCREENING REASON FOR EXAM: Female, 57 years old. Routine annual screening examination. PERTINENT HISTORY: Mother with breast cancer. Prior right excisional breast biopsy and left stereotactic breast biopsy. TECHNIQUE: Digital bilateral breast robinson (3D mammographic acquisition) in the CC and MLO projections. 2-D mediolateral oblique (MLO) and craniocaudad (CC) views of both breasts were obtained. CAD: Full Field Digital Mammography with Computer Added Detection was performed. COMPARISON: Comparison is made with prior study November 08, 2021 and October 21, 2020. FINDINGS: Breast Composition: The breasts are heterogeneously dense, which may obscure small masses. There are no dominant masses or suspicious calcifications. A tissue clip marker is once again seen in the deep inferior medial aspect of the left breast. The patient is status post lumpectomy in the upper outer quadrant of the right breast. Postoperative scarring is seen. No other significant abnormalities are identified. There has been no significant change since the prior study. BI/SCRN MAMM (CAD)W/ROBINSON BILAT IMPRESSION: Stable bilateral screening mammogram. Yearly follow-up mammogram recommended. (A) ASSESSMENT CATEGORY: BIRADS Category 2: Benign. A letter regarding these results will be sent to the patient by the facility within 30 days. Approximately 10% of breast cancers are not detected by mammography. A normal mammogram should not delay biopsy of a clinically suspicious abnormality. [id number] Electronically Signed: Jose L Castillo MD at 11:06 EDT ,
== END | disposition home or self-care (01) ==
LOC: OPBI 10:10
PROVIDERS: PCP Internal Medicine; Referring Provider Obstetrics & Gynecology; Visit Provider Obstetrics & Gynecology
DX: Z12.31 Encounter for screening mammogram for malignant neoplasm of breast (principal); Z80.3 Family history of malignant neoplasm of breast
CPT/HCPCS: 77063; 77067

== ENCOUNTER 2023-01-27 06:50 | Day surgery (SDC) | payer BC, SELFPAY ==
[2023-01-27] VITALS (8 sets, daily range): BP systolic 78–140; BP diastolic 33–76; PULSE 60–96; RESP 16–18; TEMP 36.2–36.5; O2SAT 94–100; BMI 19.2
[2023-01-27] MEDS: Lactated Ringers 1,000 ML 15 ML IV (07:08)
--- NOTE | 2023-01-27 07:08 | HP.PCM_ITS ---
History and Physical Date of Admission: 01/27/23 isit Reasons: Change in bowel habits on-going x2 months Chief Complaint: Change in bowels habits diarrhea x 2 months Allergies No Known Allergies Allergy (Verified 11/18/22 14:30) Medications multivitamin,[id number]-[id number] (Complete Multivitamin tablet) 1 tab PO DAILY 02/28/18 [History Confirmed 11/18/22] antiarthritic combination no.2 900 mg tablet (glucosamine-chondroitin) mg PO 03/16/20 [History Confirmed 11/18/22] potassium gluconate 595 mg (99 mg) tablet 595 mg PO DAILY 03/16/20 [History Confirmed 11/18/22] physio flex max PO 11/05/20 [History Confirmed 11/18/22] protein supplement ea PO 11/05/20 [History Confirmed 11/18/22] sebacic copper PO 11/05/20 [History Confirmed 11/18/22] taurnine PO 11/05/20 [History Confirmed 11/18/22] thyrolift PO 11/05/20 [History Confirmed 11/18/22] latanoprost 0.005 % eye drops 1 drp ophthalmic (eye) QPM 12/10/21 [History Confirmed 11/18/22] losartan 50 mg tablet 50 mg PO DAILY #90 tabs 06/13/22 [Rx Confirmed 11/18/22] meloxicam 15 mg tablet 15 mg PO DAILY #90 tabs 06/13/22 [Rx Confirmed 11/18/22] bio b PO 1XD 06/20/22 [History Confirmed 11/18/22] polyethylene glycol 3350 17 gram/dose oral powder (Miralax) 4 g PO DAILY 11/18/22 [History Confirmed 11/18/22] [facility] Medical History Abnormal mammogram of left breast Abnormal mammogram of left breast Abnormal ultrasound of breast Back problem History of abnormal cervical Pap smear Hypertension Surgical History History of lumpectomy of right breast Family History Grandmother Cancer hodgkins lymphomaSister Cancer lung, brainFather DiabetesMother Cancer Lymphoma with metsOther Arthritis CVA (cerebral vascular accident) Social History Smoking Status: Current every day smoker alcohol intake: current details: occasionally substance use type: marijuana caffeine: Yes what type of physical activity do you participate in: none seatbelt use: never do you feel safe at home: Yes additional social history: - Yan HPI HPI HPI: 57-year-old female referred by Dr. Nuris Teixeira for surgical consultation regarding change of bowel habits and a written copy of my surgical consult recommendations will return to him. Patient is complaining about a significant mount of diarrhea watery nonbloody stools. This has been a several month onset. There is a history of a remote colonoscopy 10 years ago which was unremarkable. I have a copy of the report dated November 04, 2016 of a colonoscopy done by Dr. Cheng Pantoja. That required 100 mcg of fentanyl and 6 mg of Versed and 50 mg of diphenhydramine. Diverticulosis was noted no other acute findings. C. difficile was recently negative. Course of ciprofloxacin made him change. Dietary exclusion of lactose may no change. There is rheumatoid factor remain The patient states now for 3 months she has had looser diarrheal stools. Mostly in the morning when she wakes up. She has not noticed any black stools or blood in her stools. No fever no pain. The problems are not resolving however. She has had a 6 to 7 pound weight loss. Her appetite is diminished. She has no family history of inflammatory bowel disease or colon cancer. She does have a sister who a lifelong had problems with constipation. ROS General General: Yes weight change; No weakness HEENT HEENT: No difficulty swallowing, eye injury, eye surgery, swollen glands or hoarseness Endo Endocrine: No thyroid disease, diabetes mellitus, thyroid cancer, Hair loss, heat intolerance or cold intolerance Skin Skin: No rash or changing moles Breast Breast: No left breast lump, right breast lump, nipple discharge, breast pain, abnormal mammogram, abnormal US or breast enlargement Musc Musculoskeletal: No back problems, arthritis, rheumatoid arthritis, gout or joint pain Cardio Cardiovascular: No murmur, pacemaker, heart disease, atrial fibrillation, high blood pressure, heart attack, heart stent, palpitations, shortness of breat with exertion or chest pain Psych Psychiatric: No depression, anxiety or hearing voices Resp Respiratory: No shortness of breath, No sleep apnea, No cough, No COPD, No asthma, No emphysema and No wheezing Gastro Gastrointestinal: Yes diarrhea Calderon Hematologic: No blood thinners, No blood disorders, No bleeding, No anemia and No blood clots Neuro Neurologic: No system reviewed and no additional complaints, except as documented, No as per HPI, No abnormal gait, No abnormal hearing, No abnormal movements, No abnormal speech, No behavioral changes, No burning sensations, No confusion, No convulsions, No disequilibrium, No dizziness, No localized weakness, No frequent falls, No headache(s), No lack of coordination, No loss of vision, No memory loss, No numbness, No other visual disturbances, No radicular pain, No restless legs, No sensory deficit, No syncope, No tingling, No tremor(s), No weakness and No other Exam Const General: cooperative, comfortable, no acute distress and well developed Nutritional Appearance: average body habitus Orientation: alert, awake and oriented x3 HENMT Head: normal to inspection Eyes General: appearance normal, both eyes and all related structures Neck Neck: normal visual inspection Resp Effort & Inspection: normal respiratory effort Auscultation: clear to auscultation bilaterally Cardio Rate: regular rate Rhythm: regular rhythm GI Inspection: normal to inspection Palpation: soft and no hepatosplenomegaly Musc Cervical Spine: normal cervical lordosis Skin General: no rashes or lesions noted Neuro General: patient alert, patient awake and patient oriented x3 Extrem General: no calf tenderness Psych Appearance: grossly normal Assessment and Plan Assessment and Plan (1) Diarrhea: Status: Acute Qualifiers: Diarrhea type: unspecified type Qualified Code(s): R19.7 - Diarrhea, unspecified Plan: 57-year-old female now with intractable diarrhea of undetermined etiology. I propose for her colonoscopy with possible biopsy or polypectomy as indicated. I will try to do my best to get into the terminal ileum and if random biopsies are appropriate we will pursue that. She has had an opportunity to ask and have questions answered. Anticipate performing this with monitored anesthesia care. She has had an opportunity to ask and have questions answered. We will schedule procedure at her discretion. I appreciate the opportunity of assisting with her surgical care. Copy: Dr. Nuris Millan M.D., F.A.C.S. I have examined the patient and the H&P has been reviewed. There are no clinical changes since date of exam. Tariq Millan M.D., F.A.C.S.
--- NOTE | 2023-01-27 07:08 | DCINST_ITS ---
Discharge Instructions Follow Up Care Test Results: Test results from this visit will be discussed in further detail at your follow- up appointment, if applicable. Discharge Plan Admission Attending Provider: Tariq Millan Primary Care Provider: Nuris Teixeira Discharge Orders/Prescriptions Prescriptions: No Action Complete Multivitamin tablet 1 tab PO DAILY potassium gluconate 595 mg (99 mg) tablet 595 mg PO DAILY glucosamine-chondroitin 900 mg tablet 900 mg PO DAILY protein supplement Granules 1 ea PO DAILY physio flex max 1 tab PO DAILY thyrolift 1 tab PO DAILY sebacic copper 1 tab PO DAILY taurnine 1 tab PO DAILY latanoprost 0.005 % drops 1 drp ophthalmic (eye) QPM bio b 1 tab PO 1XD peg 3350-electrolytes 236-22.74-6.74 -5.86 gram recon soln 4,000 ml PO ONCE Qty: 4000 0RF Rx Instructions: until fecal effluent is clear; do not exceed a total volume of 4000 mL Probiotic 10 billion cell capsule 100 mmu cells PO DAILY magnesium malate, chelate 125 mg magnesium capsule 125 mg PO DAILY losartan 50 mg tablet 50 mg PO DAILY Qty: 90 3RF meloxicam 15 mg tablet 15 mg PO DAILY Qty: 90 1RF Referrals / Follow Up: Nuris Teixeira MD [Primary Care Provider] - Disposition Disposition (needs filled in before D/C Order can be placed): Home, Self Care
--- NOTE | 2023-01-27 08:00 | COLBX_PTH ---
PATIENT: ISABEL GUZMAN LOC: EN U#:[id number] AGE/SX: 57/F ROOM: RE01/27/[address]: Dr. Tariq Millan MD : 1965 BED: DIS: 01/27/2023 SPEC #: [id number] RECD: 01/27/23 11:07 STATUS: LEX MICHELEArsalan #: [id number] DUYEN: 01/27/23 08:[address]: Tariq Millan DEPT: SURGICAL PATHOLOGY RECD BY: Renuka Ndiaye ENTERED: 01/27/23 11:51 SP TYPE: COLON BX OZZY DR: Dr. Nuris Teixeira MD Tissues: A - COLON BIOPSY B - Sigmoid colon biopsy Procedures: Trichrome (control) Special Stain Group II Surgery Specimen Level IV HEADER OPERATION: Colonoscopy with biopsy PRE-OP DIAGNOSIS: Diarrhea TISSUE SUBMITTED: A - Random colon, B - Sigmoid biopsy MICROSCOPIC DIAGNOSIS A. Colon, random biopsy: Lymphocytic colitis. See comment. B. Sigmoid colon, biopsy: Lymphocytic colitis. See comment. AM:josue 01/31/2023 COMMENT A & B. Trichrome stain with matched control was used in the evaluation of this case. MICROSCOPIC DESCRIPTION Slides are reviewed. GROSS DESCRIPTION A - Received in fixative is one container labeled with the patient's name and designated random colon biopsy. The specimen consists of multiple irregular fragments of light guadalupe soft tissue that in aggregate measure 1.5 x 0.5 x 0.1 cm. The specimen is totally submitted in one cassette. B - Received in fixative is one container labeled with the patient's name and designated sigmoid biopsy. The specimen consists of two irregular fragments of light guadalupe soft tissue that in aggregate measure 0.5 x 0.2 x 0.1 cm. The specimen is totally submitted in one cassette. / AM:josue 01/27/2023 TC:3 CPT: 63314 x2, 90044 x2
--- NOTE | 2023-01-27 08:09 | OP.CCLET_ITS ---
01/27/2023 Nuris Teixeira [facility] [address] [place] [address] Re : Colonoscopy procedure for Ronel Lambert Dear Dr. Teixeira This procedure was performed on Friday, January 27, 2023. My impressions and recommendations are as follows: Impressions : - Non-thrombosed external hemorrhoids, non-thrombosed internal hemorrhoids and internal hemorrhoids that prolapse with straining, but spontaneously regress to the resting position (Grade II) found on digital rectal exam. - Diverticulosis in the entire examined colon. - Erythematous mucosa in the sigmoid colon. Biopsied. - Biopsies were taken with a cold forceps from the entire colon for evaluation of microscopic colitis. Recommendations : - Discharge patient to home. - Telephone my office for pathology results in 1 week. - Repeat colonoscopy in 10 years for screening purposes. - Continue present medications. My findings are described in the full procedure note, which is enclosed. If I can be of further assistance, please feel free to contact me at Doctor phone number(s): Work: . Sincerely, Tariq Millan MD 01/27/2023 8:08:52 AM This report has been signed electronically.
--- NOTE | 2023-01-27 08:09 | OP.COLON_ITS ---
Patient Name: Ronel Lambert Procedure Date: 01/27/2023 7:42 AM Date of : 1965 Age: 57 Procedure: Colonoscopy Indications: Clinically significant diarrhea of unexplained origin Providers: Tariq Millan MD Referring MD: Nuris Teixeira Medicines: See the Anesthesia note for documentation of the administered medications Patient Profile: Last Colonoscopy: date unknown. Complications: No immediate complications. Procedure: Pre-Anesthesia Assessment: - Prior to the procedure, a History and Physical was performed, and patient medications and allergies were reviewed. The patient's tolerance of previous anesthesia was also reviewed. The risks and benefits of the procedure and the sedation options and risks were discussed with the patient. All questions were answered, and informed consent was obtained. Prior Anticoagulants: The patient has taken no anticoagulant or antiplatelet agents. ASA Grade Assessment: II - A patient with mild systemic disease. After reviewing the risks and benefits, the patient was deemed in satisfactory condition to undergo the procedure. After I obtained informed consent, the scope was passed under direct vision. Throughout the procedure, the patient's blood pressure, pulse, and oxygen saturations were monitored continuously. The colonoscope was introduced through the anus and advanced to the cecum, identified by appendiceal orifice and ileocecal valve. The colonoscopy was performed without difficulty. The patient tolerated the procedure well. The quality of the bowel preparation was good. The ileocecal valve and the appendiceal orifice were photographed. Scope In: 7:47:51 AM Scope Withdrawal Time 0 hours 9 minutes 8 seconds Scope Out: 8:02:32 AM Total Procedure Duration Time 0 hours 14 minutes 41 seconds Findings: The digital rectal exam findings include non-thrombosed external hemorrhoids, non-thrombosed internal hemorrhoids and internal hemorrhoids that prolapse with straining, but spontaneously regress to the resting position (Grade II). Multiple diverticula were found in the entire colon. Biopsies for histology were taken with a cold forceps from the entire colon for evaluation of microscopic colitis. A scattered area of mildly erythematous mucosa was found in the sigmoid colon. This was biopsied with a cold forceps for histology. Impression: - Non-thrombosed external hemorrhoids, non-thrombosed internal hemorrhoids and internal hemorrhoids that prolapse with straining, but spontaneously regress to the resting position (Grade II) found on digital rectal exam. - Diverticulosis in the entire examined colon. - Erythematous mucosa in the sigmoid colon. Biopsied. - Biopsies were taken with a cold forceps from the entire colon for evaluation of microscopic colitis. Recommendation: - Discharge patient to home. - Telephone my office for pathology results in 1 week. - Repeat colonoscopy in 10 years for screening purposes. - Continue present medications. Procedure Code(s): --- Professional --- 10821, Colonoscopy, flexible; with biopsy, single or multiple Diagnosis Code(s): --- Professional --- K64.1, Second degree hemorrhoids K64.4, Residual hemorrhoidal skin tags K63.89, Other specified diseases of intestine R19.7, Diarrhea, unspecified K57.30, Diverticulosis of large intestine without perforation or abscess without bleeding CPT copyright 2021 [employer]. All rights reserved. The codes documented in this report are preliminary and upon top flavor attendant review may be revised to meet current compliance requirements. Tariq Millan MD 01/27/2023 8:08:52 AM This report has been signed electronically. Number of Addenda: 0 Note Initiated On: 01/27/2023 7:42 AM
== END 2023-01-27 09:14 | disposition home or self-care (01) ==
LOC: EN 06:51 → AC 06:53
PROVIDERS: PCP Internal Medicine; Referring Provider Internal Medicine; Visit Provider Surgery
PROC: 0DJD8ZZ Inspection of Lower Intestinal Tract, Via Natural or Artificial Opening Endoscopic (ICD-10-PCS; CPT 45378; principal; 2023-01-27 07:55)
DX: K52.832 Lymphocytic colitis (principal); K57.30 Diverticulosis of large intestine without perforation or abscess without bleeding; K64.1 Second degree hemorrhoids; K64.4 Residual hemorrhoidal skin tags; I10 Essential (primary) hypertension; F12.90 Cannabis use, unspecified, uncomplicated; M19.90 Unspecified osteoarthritis, unspecified site; F17.210 Nicotine dependence, cigarettes, uncomplicated; Z79.899 Other long term (current) drug therapy
CPT/HCPCS: 45380; 88305; 88313; J7120; J2405

== ENCOUNTER → 2023-06-22 | Outpatient (CLI) | payer BC, SELFPAY ==
[2023-06-22 10:54] LABS: Absolute Lymphocyte Count 1.44 X10^3/uL (0.83-4.51); Absolute Neutrophil Count 6.7 X10^3/uL (2.0-7.7); Basophil# 0.08 X10^3/uL; Basophil% 0.9 % (0-1); Eosinophil# 0.06 X10^3/uL; Eosinophils% 0.7 % (0-5); Hematocrit 44.3 % (37-47); Hemoglobin 14.6 g/dL (12.0-15.0); Lymphocyte # 1.44 X10^3/ul (0.83-4.51); Lymphocyte % 15.8 % (19-41); Mean Corpuscular Hgb 31.9 pg (27.0-32.0); Mean Corpuscular Volume 96.9 fL (81-99); Mean Platelet Vol. 9.6 fl (6.2-12.0); Monocyte# 0.85 X10^3/uL; Monocyte% 9.3 % (0-10); NRBC Flagged by Analyzer 0 % (0-5); Neutrophil # 6.66 X10^3/uL (2.7-7.7); Neutrophil % 72.9 % (47-70); Platelet Count 367 K/mm3 (150-450); RBC Distribution Width CV 12.5 % (11.6-14.6); RBC Distribution Width SD 44.6 fl (35.1-43.9); Red Blood Count 4.57 M/mm3 (4.2-5.4); White Blood Count 9.1 K/mm3 (4.4-11.0)
[2023-06-22 11:29] LABS: Vitamin D,25 Hydroxy 43.5 ng/mL
[2023-06-22 11:47] LABS: ALB/GLOB Ratio 0.7 RATIO (0.9-2.4); AST(SGOT) 17 U/L (15-37); Alanine Aminotransfer ALT/SGPT 19 U/L (13-56); Albumin, Serum 3.7 g/dL (3.2-5.0); Alkaline Phosphatase 84 U/L (45-117); Anion Gap 6 (5-15); BUN 22 mg/dL (7-18); BUN/Creat Ratio 35.7 RATIO (10-20); Calcium,Total 9.6 mg/dL (8.5-10.1); Chloride 103 mmol/L (98-107); Cholesterol 218 mg/dL (200); Creatinine, Serum 0.62 mg/dL (0.55-1.02); EST Glomerular Filtration Rate 105 mL/min (>60); Est Glom Filt Rate - Afr Amer 127 mL/min (>60); Ferritin 136 ng/mL (8-252); Globulin 5.1 g/dL (2.2-4.2); Glucose 94 mg/dL (74-106); High Density Lipoprotein 61 mg/dL; Iron 104 ug/dL (50-170); Iron Binding Capacity,Total 271 ug/dL (250-450); Magnesium 2.1 mg/dL (1.6-2.6); PERCENT IRON SATURATION 38.4 % (15.0-55.0); Potassium 4.7 mmol/L (3.5-5.1); Protein, Total 8.8 g/dL (6.4-8.2); Sodium Level 136 mmol/L (136-145); Thyroid Stim Hormone (TSH) 0.62 uIU/mL (0.358-3.74); Triglycerides 129 mg/dL; Very Low Density Lipoprotein 26 mg/dL (5-40)
[2023-06-23 15:08] LABS: Albumin 3.6 g/dL (2.9-4.4); Alpha-1-Globulins 0.3 g/dL (0.0-0.4); Gamma Globulin 1.5 g/dL (0.4-1.8); Immunoglobulin A 462 mg/dL (87-352); Immunoglobulin G 1471 mg/dL (586-1602); Immunoglobulin M 140 mg/dL (26-217); PROEL- TOTAL PROTEIN 7.7 g/dL (6.0-8.5)
== END | disposition home or self-care (01) ==
LOC: LAB 10:23
PROVIDERS: PCP Internal Medicine; Referring Provider Internal Medicine; Visit Provider Internal Medicine
DX: Z00.00 Encounter for general adult medical examination without abnormal findings (principal); Z13.220 Encounter for screening for lipoid disorders; K52.832 Lymphocytic colitis; M19.90 Unspecified osteoarthritis, unspecified site; I10 Essential (primary) hypertension; R79.0 Abnormal level of blood mineral; E55.9 Vitamin D deficiency, unspecified; R77.9 Abnormality of plasma protein, unspecified
CPT/HCPCS: 36415; 80053; 80061; 82306; 82728; 82784; 83540; 83550; 83735; 84165; 84443; 85025; 86334

== ENCOUNTER → 2024-06-24 | Outpatient (CLI) | payer BC, SELFPAY ==
[2024-06-24 11:19] LABS: Absolute Lymphocyte Count 1.72 X10^3/uL (0.83-4.51); Absolute Neutrophil Count 6.2 X10^3/uL (2.0-7.7); Basophil# 0.08 X10^3/uL; Basophil% 0.9 % (0-1); Eosinophil# 0.07 X10^3/uL; Eosinophils% 0.8 % (0-5); Hematocrit 41.6 % (37-47); Hemoglobin 14.1 g/dL (12.0-15.0); Lymphocyte # 1.72 X10^3/ul (0.83-4.51); Lymphocyte % 19.3 % (19-41); Mean Corp Hgb Conc 33.9 g/dL (32-36); Mean Corpuscular Hgb 32.6 pg (27.0-32.0); Mean Corpuscular Volume 96.3 fL (81-99); Mean Platelet Vol. 9.6 fl (6.2-12.0); Monocyte# 0.81 X10^3/uL; Monocyte% 9.1 % (0-10); NRBC Flagged by Analyzer 0 % (0-5); Neutrophil # 6.19 X10^3/uL (2.7-7.7); Neutrophil % 69.5 % (47-70); Platelet Count 357 K/mm3 (150-450); RBC Distribution Width CV 12.7 % (11.6-14.6); RBC Distribution Width SD 45.1 fl (35.1-43.9); Red Blood Count 4.32 M/mm3 (4.2-5.4); White Blood Count 8.9 K/mm3 (4.4-11.0)
[2024-06-24 11:54] LABS: Hemoglobin A1c 5.3 % (<=5.6)
[2024-06-24 12:09] LABS: ALB/GLOB Ratio 1.1 RATIO (0.9-2.4); AST(SGOT) 24 U/L (<=31); Alanine Aminotransfer ALT/SGPT 17 U/L (<=34); Albumin, Serum 4.1 g/dL (3.4-4.8); Alkaline Phosphatase 86 U/L (35-104); Anion Gap 11 (5-15); BUN 21 mg/dL (4-19); BUN/Creat Ratio 40.1 RATIO (10-20); Calcium,Total 9.5 mg/dL (7.6-11.0); Carbon Dioxide 24.2 mmol/L (21.0-32.0); Chloride 103 mmol/L (98-108); Cholesterol 213 mg/dL (<=200); Creatinine, Serum 0.53 mg/dL (0.70-1.20); EST Glomerular Filtration Rate 106 (>60); Globulin 3.6 g/dL (2.2-4.2); Glucose 94 mg/dL (70-99); High Density Lipoprotein 61 mg/dL; Low Density Lipoprotein Calc. 132 mg/dL; Potassium 4.4 mmol/L (3.3-5.1); Protein, Total 7.8 g/dL (5.9-8.4); Sodium Level 138 mmol/L (133-145); Total Bilirubin 0.29 mg/dL (0.00-1.30); Triglycerides 99 mg/dL; Very Low Density Lipoprotein 20 mg/dL (5-40); cholesterol:hdl ratio screen 3.47
[2024-06-24 12:14] LABS: Ferritin 181 ng/mL (22-378); Vitamin B12 734 pg/mL (180-914); Vitamin D,25 Hydroxy 28.2 ng/mL (30-100)
[2024-06-24 12:26] LABS: Iron 145 ug/dL (50-170); Iron Binding Capacity,Unsat 85 ug/dL (228-428)
[2024-06-24 12:29] LABS: Iron Binding Capacity,Total 230 ug/dL (250-450)
== END | disposition home or self-care (01) ==
LOC: LAB 10:41
PROVIDERS: PCP Internal Medicine; Referring Provider Internal Medicine; Visit Provider Internal Medicine
DX: Z00.00 Encounter for general adult medical examination without abnormal findings (principal); I10 Essential (primary) hypertension; Z13.220 Encounter for screening for lipoid disorders; E55.9 Vitamin D deficiency, unspecified; R73.9 Hyperglycemia, unspecified; E53.8 Deficiency of other specified B group vitamins
CPT/HCPCS: 36415; 80053; 80061; 82306; 82607; 82728; 83036; 83540; 83550; 83735; 84443; 85025

== ENCOUNTER → 2024-08-15 | Outpatient (CLI) | payer BC, SELFPAY | END | disposition home or self-care (01) | LOC: OPBI 10:17 | PROVIDERS: PCP Internal Medicine; Referring Provider Obstetrics & Gynecology; Visit Provider Obstetrics & Gynecology | DX: Z12.31 Encounter for screening mammogram for malignant neoplasm of breast (principal) | CPT/HCPCS: 77063; 77067 ==

== ENCOUNTER → 2024-08-28 | Outpatient (CLI) | payer BC, SELFPAY ==
[2024-08-28 09:37] LABS: Hematocrit 43.8 % (37-47); Hemoglobin 15.5 g/dL (12.0-15.0); Immature Granulocytes Count 0.050 X10^3/uL (0.0-0.0); Mean Corp Hgb Conc 35.4 g/dL (32-36); Mean Corpuscular Volume 93.0 fL (81-99); Mean Platelet Vol. 9.6 fl (6.2-12.0); NRBC Flagged by Analyzer 0 % (0-5); Platelet Count 278 K/mm3 (150-450); RBC Distribution Width CV 12.6 % (11.6-14.6); RBC Distribution Width SD 42.9 fl (35.1-43.9); Red Blood Count 4.71 M/mm3 (4.2-5.4); White Blood Count 10.3 K/mm3 (4.4-11.0)
[2024-08-28 10:46] LABS: AST(SGOT) 24 U/L (<=31); Alanine Aminotransfer ALT/SGPT 18 U/L (<=34); Albumin, Serum 4.1 g/dL (3.4-4.8); Alkaline Phosphatase 86 U/L (35-104); Anion Gap 13 (5-15); BUN 16 mg/dL (4-19); BUN/Creat Ratio 27.1 RATIO (10-20); Calcium,Total 9.4 mg/dL (7.6-11.0); Carbon Dioxide 22.0 mmol/L (21.0-32.0); Chloride 101 mmol/L (98-108); Globulin 3.8 g/dL (2.2-4.2); Glucose 144 mg/dL (70-99); Potassium 3.7 mmol/L (3.3-5.1)
[2024-08-28 14:36] LABS: CRP 74.60 mg/L (0.0-3.0); Magnesium 1.8 mg/dL (1.5-2.2)
[2024-08-28 15:14] LABS: Lipase 22 U/L (13-75)
[2024-09-02 16:09] LABS: Calprotectin, Stool 948 ug/g (0-120); Fats, Neutral Normal (.); Fats, Total Normal (.)
[2024-09-03 02:07] LABS: Pancreatic Elastase, Fecal 26 (>200)
== END | disposition home or self-care (01) ==
PROVIDERS: PCP Internal Medicine; Referring Provider Internal Medicine; Visit Provider Internal Medicine
DX: R19.7 Diarrhea, unspecified (principal); K58.9 Irritable bowel syndrome, unspecified
CPT/HCPCS: 36415; 80053; 82274; 82653; 82705; 83630; 83690; 83735; 83993; 84439; 85025; 85652; 86140; 87506

== ENCOUNTER → 2024-09-10 | Outpatient (CLI) | payer BC, SELFPAY ==
[2024-09-12 13:08] LABS: Immunoglobulin A 487 mg/dL (87-352)
[2024-09-12 17:08] LABS: Giardia Lamblia, Stool EIA Negative (Negative)
[2024-09-13 15:08] LABS: Calprotectin, Stool 752 ug/g (0-120)
== END | disposition home or self-care (01) ==
PROVIDERS: PCP Internal Medicine; Referring Provider Nurse Practitioner Acute Care; Visit Provider Nurse Practitioner Acute Care
DX: K52.832 Lymphocytic colitis (principal); R19.7 Diarrhea, unspecified
CPT/HCPCS: 36415; 82784; 83516; 83993; 87329; 87493; 87506

== ENCOUNTER → 2024-12-18 | Outpatient (CLI) | payer BC, SELFPAY ==
[2024-12-22 02:07] LABS: Calprotectin, Stool 54 ug/g (0-120)
== END | disposition home or self-care (01) ==
LOC: LABSPEC 09:33
PROVIDERS: PCP Internal Medicine; Referring Provider Nurse Practitioner Acute Care; Visit Provider Nurse Practitioner Acute Care
DX: K52.832 Lymphocytic colitis (principal); R19.7 Diarrhea, unspecified
CPT/HCPCS: 83993